=== PATIENT | female | born 1975 | race Caucasian/White ===

== ENCOUNTER 2017-04-22 14:06 | Outpatient (CLI) | payer OTHER ==
[~2017-04-22 14:06] MED LIST: HYDR-3240 PO; IBUP-1222 PO
[2017-04-22 15:05] VITALS: BP 105/64
== END 2017-04-22 15:35 | disposition home or self-care (01) ==
LOC: LDOP 14:06
PROVIDERS: ATTEND Obstetrics & Gynecology
DX: O24.419 Gestational diabetes mellitus in pregnancy, unspecified control (principal); Z3A.35 35 weeks gestation of pregnancy
CPT/HCPCS: 59025; 99201; G0463

== ENCOUNTER 2017-04-29 14:02 | Outpatient (CLI) | payer OTHER ==
[~2017-04-29] VITALS: Ht 172.7 cm; Wt 62.7 kg
[2017-04-29 14:11] VITALS: BP 112/68
== END 2017-04-29 14:57 | disposition home or self-care (01) ==
LOC: LDOP 14:02
PROVIDERS: ATTEND Obstetrics & Gynecology
DX: O24.419 Gestational diabetes mellitus in pregnancy, unspecified control (principal); O09.523 Supervision of elderly multigravida, third trimester; Z3A.00 Weeks of gestation of pregnancy not specified
CPT/HCPCS: 59025; 99211; G0463

== ENCOUNTER 2017-05-06 14:05 | Inpatient (IN) | payer OTHER ==
[~2017-05-06] VITALS: Ht 172.7 cm; Wt 63.6 kg
[2017-05-06 14:10] VITALS: BP 138/84
[2017-05-06 15:22] LABS: BASOPHILS # (AUTO) 0.04 x10^3/uL (0-0.1); BASOPHILS % (AUTO) 1 % (0-1); EOSINOPHILS # (AUTO) 0.15 x10^3/uL (0-0.4); EOSINOPHILS % (AUTO) 2 % (1-7); LYMPHOCYTES # (AUTO) 2.04 x10^3/uL (1-3.4); LYMPHOCYTES % (AUTO) 26 % (22-44); MD NO; MEAN CORPUSCULAR HEMOGLOBIN 30.7 pg (27.0-34.8); MEAN CORPUSCULAR HGB CONC 33.7 g/dL (32.4-35.8); MEAN CORPUSCULAR VOLUME 91.2 fL (80-100); MEAN PLATELET VOLUME 9.1 fL (7.4-10.4); MONOCYTES # (AUTO) 0.47 x10^3/uL (0.2-0.8); MONOCYTES % (AUTO) 6 % (2-9); NEUTROPHILS # (AUTO) 5.26 x10^3/uL (1.8-6.8); NEUTROPHILS % (AUTO) 66 % (42-75); PLATELET COUNT 178 x10^3/uL (130-400); RED BLOOD COUNT 3.83 x10^6/uL (3.82-5.3)
[2017-05-06 15:31] LABS: MICROSCOPIC NOT IND
[2017-05-06 15:34] LABS: ALANINE AMINOTRANSFERASE 10 U/L (12-78); ALBUMIN 2.4 g/dL (3.4-5.0); ANION GAP 7 mmol/L (5-15); CALCIUM 8.1 mg/dL (8.5-10.1); CHLORIDE 105 mmol/L (98-107); CREATININE 0.72 mg/dL (0.55-1.02)
[2017-05-06 15:36] LABS: ALKALINE PHOSPHATASE 173 U/L (45-117); BILIRUBIN,TOTAL 0.3 mg/dL (0.2-1.0); TOTAL PROTEIN 5.9 g/dL (6.4-8.2)
[2017-05-06] MEDS ORDERED: OXYTOCIN 30U/ 0.9% NaCL 500ML 500 ML IV PRN (16:21)
[2017-05-06] MEDS ORDERED: OXYTOCIN 30U/ 0.9% NaCL 500ML 500 ML IV ONE (16:21)
[2017-05-06] MEDS: D5%-LACTATED RINGERS 1,000 ML IV SCH (16:21)
[2017-05-06] MEDS ORDERED: ONDANSETRON 2MG/ML, 2ML IVPush PRN (16:30)
[2017-05-06] MEDS ORDERED: MISOPROSTOL 25 MCG TABLET VG PRN (16:30)
[2017-05-06] MEDS ORDERED: SODIUM CITRATE/CITRIC ACID 30 ML UDC PO PRN (16:30)
[2017-05-06] MEDS ORDERED: METOCLOPRAMIDE 5 MG/ML, 2ML IVPush PRN (16:30)
[2017-05-06] MEDS ORDERED: TERBUTALINE 1 MG/ML, 1ML IVPush PRN (16:30)
[2017-05-06] MEDS ORDERED: FENTANYL PF 100 MCG/2ML IV PRN (16:30)
[2017-05-06] MEDS: LACTATED RINGERS 1,000 ML IV SCH ×2 (16:37→23:08)
[2017-05-06] MEDS ORDERED: LIDOCAINE 1%, 20ML ONE (16:57)
[2017-05-06] MEDS ORDERED: MISOPROSTOL 200 MCG TABLET ONE (16:57)
[2017-05-06] MEDS ORDERED: NEWBORN KIT ONE (16:57)
[2017-05-06] MEDS ORDERED: OXYTOCIN 30U/ 0.9% NaCL 500ML 500 ML ONE (16:58)
[2017-05-06] MEDS ORDERED: FENTANYL PF 100 MCG/2ML ONE ×2 (21:03→22:24)
[2017-05-06] MEDS: FENTANYL PF 100 MCG/2ML IVPush PRN ×2 (21:07→22:27)
[2017-05-06] MEDS ORDERED: TERBUTALINE 1 MG/ML, 1ML ONE (23:46)
[2017-05-07] MEDS ORDERED: LIDOCAINE 1%, 20ML ONE (00:14)
[2017-05-07] MEDS: D5%-LACTATED RINGERS 1,000 ML IV SCH ×2 (00:21→08:01)
[2017-05-07] MEDS ORDERED: FENTANYL PF 100 MCG/2ML ONE (01:04)
[2017-05-07] MEDS: FENTANYL PF 100 MCG/2ML IVPush PRN (01:06)
[2017-05-07] MEDS: OXYTOCIN 30U/ 0.9% NaCL 500ML 500 ML IV SCH ×3 (01:11→21:11)
[2017-05-07] MEDS ORDERED: MISOPROSTOL 200 MCG TABLET PR PRN (01:30)
[2017-05-07] MEDS ORDERED: ONDANSETRON 2MG/ML, 2ML IV PRN (01:30)
[2017-05-07] MEDS ORDERED: CALCIUM CARBONATE 500 MG TAB.CHEW PO PRN (01:30)
[2017-05-07] MEDS ORDERED: METHYLERGONOVINE 0.2 MG/ML IM PRN (01:30)
[2017-05-07] MEDS ORDERED: IBUPROFEN 600 MG TABLET ONE (01:39)
[2017-05-07] MEDS ORDERED: OXYcodone/APAP 5/325MG TABLET ONE (01:39)
[2017-05-07] MEDS: OXYcodone/APAP 5/325MG TABLET PO PRN ×5 (01:41→19:41)
[2017-05-07] MEDS: IBUPROFEN 600 MG TABLET PO PRN ×4 (01:41→20:24)
[2017-05-07] MEDS ORDERED: OXYTOCIN 30U/ 0.9% NaCL 500ML 500 ML ONE (01:42)
[2017-05-07 02:40] VITALS: BP 157/98
[2017-05-07] MEDS: PRENATAL VIT/IRON/FA 1 EACH TABLET PO SCH (07:57)
[2017-05-07] MEDS: DOCUSATE 100 MG CAPSULE PO PRN ×2 (07:57→19:41)
[2017-05-07 08:18] VITALS: BP_SYST 159; BP_SYST 160; BP_DIAS 83; BP_DIAS 84
[2017-05-07 08:29] LABS: BASOPHILS # (AUTO) 0.04 x10^3/uL (0-0.1); BASOPHILS % (AUTO) 0 % (0-1); EOSINOPHILS # (AUTO) 0.02 x10^3/uL (0-0.4); EOSINOPHILS % (AUTO) 0 % (1-7); LYMPHOCYTES # (AUTO) 1.45 x10^3/uL (1-3.4); LYMPHOCYTES % (AUTO) 14 % (22-44); MD NO; MEAN CORPUSCULAR HEMOGLOBIN 30.5 pg (27.0-34.8); MEAN CORPUSCULAR HGB CONC 33.3 g/dL (32.4-35.8); MEAN CORPUSCULAR VOLUME 91.4 fL (80-100); MONOCYTES # (AUTO) 0.45 x10^3/uL (0.2-0.8); MONOCYTES % (AUTO) 4 % (2-9); NEUTROPHILS # (AUTO) 8.54 x10^3/uL (1.8-6.8); NEUTROPHILS % (AUTO) 81 % (42-75); PLATELET COUNT 173 x10^3/uL (130-400); RED BLOOD COUNT 3.91 x10^6/uL (3.82-5.3); RED CELL DISTRIBUTION WIDTH 12.8 % (9.6-15.2)
[2017-05-07 12:59] VITALS: BP 140/88
[2017-05-07 16:00] VITALS: BP 153/90
[2017-05-07 19:50] VITALS: BP 132/82
[2017-05-07] MEDS ORDERED: DIPH,PERTUSS(ACELL),TET VAC/PF NC IM-VACC ONE (21:30)
[2017-05-08] MEDS: OXYcodone/APAP 5/325MG TABLET PO PRN ×3 (00:03→10:34)
[2017-05-08 00:06] VITALS: BP 127/77
[2017-05-08] MEDS: IBUPROFEN 600 MG TABLET PO PRN (05:03)
[2017-05-08] MEDS: OXYTOCIN 30U/ 0.9% NaCL 500ML 500 ML IV SCH (07:11)
[2017-05-08] MEDS: PRENATAL VIT/IRON/FA 1 EACH TABLET PO SCH (07:47)
[2017-05-08] MEDS: DOCUSATE 100 MG CAPSULE PO PRN (07:47)
[2017-05-08 08:00] VITALS: BP 130/82
[2017-05-08] MEDS ORDERED: IBUP200T49 PO (13:38)
[2017-05-08] MEDS ORDERED: HYDR-3240 PO (13:38)
== END 2017-05-08 15:35 | disposition home or self-care (01) | DRG 775 ==
LOC: LDOP 14:05 → EDIP 16:11 → LDIP 16:21 → 2NW 05-07 02:39
PROVIDERS: ADMIT Obstetrics & Gynecology; ATTEND Obstetrics & Gynecology
PROC: 10E0XZZ Delivery of Products of Conception, External Approach (ICD-10-PCS; principal; 2017-05-07)
DX: O13.4 Gestational [pregnancy-induced] hypertension without significant proteinuria, complicating childbirth (principal); O24.429 Gestational diabetes mellitus in childbirth, unspecified control; F12.90 Cannabis use, unspecified, uncomplicated; J45.909 Unspecified asthma, uncomplicated; F17.210 Nicotine dependence, cigarettes, uncomplicated; O69.81X0 Labor and delivery complicated by cord around neck, without compression, not applicable or unspecified; O76 Abnormality in fetal heart rate and rhythm complicating labor and delivery; O99.52 Diseases of the respiratory system complicating childbirth; Z3A.37 37 weeks gestation of pregnancy; Z37.0 Single live birth
CPT/HCPCS: 36415; 76819; 80053; 81003; 82570; 82803; 82962; 84156; 84550; 85025; 86850; 86900; 90715; J3010; J2590; J3105; J7120